=== PATIENT | female | born 1950 | race Caucasian/White ===

== ENCOUNTER 2018-08-10 06:52 | Day surgery (SDC) | payer MEDICARE, MEDICAID ==
[2018-08-07 09:10] LABS: BASOPHILS # (AUTO) 0.04 x10^3/uL (0-0.1); BASOPHILS % (AUTO) 0 % (0-1); EOSINOPHILS # (AUTO) 0.12 x10^3/uL (0-0.4); EOSINOPHILS % (AUTO) 1 % (1-7); LYMPHOCYTES # (AUTO) 1.76 x10^3/uL (1-3.4); LYMPHOCYTES % (AUTO) 14 % (22-44); MD NO; MEAN CORPUSCULAR HEMOGLOBIN 30.6 pg (27.0-34.8); MEAN CORPUSCULAR HGB CONC 33.2 g/dL (32.4-35.8); MEAN CORPUSCULAR VOLUME 92.1 fL (80-100); MEAN PLATELET VOLUME 6.8 fL (7.4-10.4); MONOCYTES # (AUTO) 1.07 x10^3/uL (0.2-0.8); MONOCYTES % (AUTO) 8 % (2-9); NEUTROPHILS # (AUTO) 9.79 x10^3/uL (1.8-6.8); NEUTROPHILS % (AUTO) 77 % (42-75); PLATELET COUNT 370 x10^3/uL (130-400); RED BLOOD COUNT 4.87 x10^6/uL (3.82-5.3); RED CELL DISTRIBUTION WIDTH 13.2 % (9.6-15.2)
[2018-08-07 09:23] LABS: ALANINE AMINOTRANSFERASE 24 U/L (12-78); ANION GAP 6 mmol/L (5-15); CALCIUM 8.9 mg/dL (8.5-10.1); CHLORIDE 105 mmol/L (98-107)
[2018-08-07 09:25] LABS: ALKALINE PHOSPHATASE 82 U/L (45-117); BILIRUBIN,TOTAL 0.9 mg/dL (0.2-1.0); CREATININE 0.79 mg/dL (0.55-1.02); TOTAL PROTEIN 7.6 g/dL (6.4-8.2)
[2018-08-07 09:35] LABS: MICROSCOPIC INDICATED
[2018-08-07 09:37] LABS: CULTURE INDICATED? NO
[~2018-08-10] VITALS: Ht 162.6 cm; Wt 72.1 kg
[~2018-08-10 06:52] MED LIST: GABA100C PO; LISI2.5T PO; METO25TA91 PO; TRAM50TA2 PO; VERA40TA PO; Will bring list DOS
[2018-08-10] MEDS ORDERED: BUPIVACAINE/PF 0.25% ONE ×2 (07:19→08:37)
[2018-08-10] MEDS ORDERED: EPINEPHRINE 1 MG/ML, 1ML ONE ×2 (07:19→08:38)
[2018-08-10] MEDS ORDERED: FLUORESCEIN SODIUM 500 MG/5 ML ONE ×2 (07:19→08:37)
[2018-08-10] MEDS ORDERED: NEOSPORIN OINT, 15GM ONE ×2 (07:19→08:37)
[2018-08-10 08:16] VITALS: BP 155/103
[2018-08-10] MEDS ORDERED: LACTATED RINGERS 1,000 ML IV SCH (08:16)
[2018-08-10] MEDS ORDERED: MONT10TA9 PO (08:22)
[2018-08-10] MEDS ORDERED: TRAM50TA2 PO (08:22)
[2018-08-10] MEDS ORDERED: ALBU18HF IH (08:22)
[2018-08-10] MEDS ORDERED: METO50TA82 PO (08:22)
[2018-08-10] MEDS ORDERED: LISI40TA PO (08:22)
[2018-08-10] MEDS ORDERED: GABA100C PO (08:22)
[2018-08-10] MEDS ORDERED: CITA10TA4 PO (08:22)
[2018-08-10] MEDS ORDERED: VERA40TA PO (08:22)
[2018-08-10 08:24] LABS: BASOPHILS # (AUTO) 0.05 x10^3/uL (0-0.1); BASOPHILS % (AUTO) 1 % (0-1); EOSINOPHILS # (AUTO) 0.26 x10^3/uL (0-0.4); EOSINOPHILS % (AUTO) 4 % (1-7); LYMPHOCYTES # (AUTO) 2.09 x10^3/uL (1-3.4); LYMPHOCYTES % (AUTO) 31 % (22-44); MD NO; MEAN CORPUSCULAR HEMOGLOBIN 31.3 pg (27.0-34.8); MEAN CORPUSCULAR VOLUME 92.2 fL (80-100); MEAN PLATELET VOLUME 7.1 fL (7.4-10.4); MONOCYTES # (AUTO) 0.59 x10^3/uL (0.2-0.8); MONOCYTES % (AUTO) 9 % (2-9); NEUTROPHILS # (AUTO) 3.75 x10^3/uL (1.8-6.8); NEUTROPHILS % (AUTO) 56 % (42-75); PLATELET COUNT 328 x10^3/uL (130-400); RED BLOOD COUNT 4.63 x10^6/uL (3.82-5.3); RED CELL DISTRIBUTION WIDTH 13.3 % (9.6-15.2)
[2018-08-10] MEDS ORDERED: APREPITANT 40 MG CAPSULE PO ONE (08:30)
[2018-08-10] MEDS ORDERED: OXYcodone IR 5MG TABLET PO ONE (08:30)
[2018-08-10] MEDS ORDERED: ACETAMINOPHEN 500 MG TABLET PO ONE (08:30)
[2018-08-10] MEDS ORDERED: GABAPENTIN 300 MG CAPSULE PO ONE (08:30)
[2018-08-10] MEDS ORDERED: ROCURONIUM 10MG/ML,5ML ONE ×2 (09:00→10:48)
[2018-08-10] MEDS ORDERED: PROPOFOL 10 MG/ML, 20ML ONE ×2 (09:00→10:24)
[2018-08-10] MEDS ORDERED: DEXAMETHASONE 4 MG/ML, 1ML ONE (09:01)
[2018-08-10] MEDS ORDERED: ONDANSETRON 2MG/ML, 2ML ONE (09:01)
[2018-08-10] MEDS ORDERED: FENTANYL PF 100 MCG/2ML ONE ×2 (09:43→12:56)
[2018-08-10] MEDS ORDERED: GLYCOPYRROLATE 0.4 MG/2 ML, 2ML ONE (10:24)
[2018-08-10] MEDS ORDERED: ATROPINE 0.4 MG/ML, 1ML ONE (10:24)
[2018-08-10] MEDS ORDERED: KETOROLAC 30 MG/1 ML IV PRN ×2 (10:30)
[2018-08-10] MEDS ORDERED: MORPHINE SULFATE 4 MG/ML, 1ML IVPush PRN (10:30)
[2018-08-10] MEDS ORDERED: OXYcodone 5 MG/5 ML ORAL.SOL UDC PO PRN (10:30)
[2018-08-10] MEDS ORDERED: KETOROLAC 30 MG/1 ML IM PRN (10:30)
[2018-08-10] MEDS ORDERED: ACETAMINOPHEN 325 MG TABLET PO PRN ×2 (10:30→13:00)
[2018-08-10] MEDS ORDERED: MEPERIDINE/PF 25MG/0.5ML IVPush PRN (10:30)
[2018-08-10] MEDS ORDERED: HYDROmorphone 2 MG/ML, 1ML IVPush PRN (10:30)
[2018-08-10] MEDS ORDERED: HYDROcodone/APAP 7.5-325MG/15ML UDC PO PRN (10:30)
[2018-08-10] MEDS ORDERED: SUGAMMADEX 200 MG/2 ML IVPush ONE (10:31)
[2018-08-10] MEDS ORDERED: CEFAZOLIN 1,000 MG ONE (12:37)
[2018-08-10] MEDS ORDERED: D5%-0.45% NACL 1,000 ML IV SCH (12:51)
[2018-08-10] MEDS ORDERED: OXYcodone 5 MG/5 ML ORAL.SOL UDC ONE (12:56)
[2018-08-10] MEDS ORDERED: ONDANSETRON 2MG/ML, 2ML IVPush PRN (13:00)
[2018-08-10] MEDS ORDERED: OXYcodone/APAP 5/325MG TABLET PO PRN (13:00)
[2018-08-10] MEDS: FENTANYL PF 100 MCG/2ML IV PRN ×2 (13:18→13:30)
[2018-08-10] MEDS ORDERED: METOPROLOL TARTRATE 50 MG TABLET PO ONE (14:30)
[2018-08-10] MEDS ORDERED: IBUPROFEN 600 MG TABLET PO SCH (16:00)
[2018-08-10] MEDS ORDERED: DOCUSATE 100 MG CAPSULE PO SCH (21:00)
== END 2018-08-10 18:25 | disposition home or self-care (01) ==
LOC: OUT 06:52
PROVIDERS: ATTEND Obstetrics & Gynecology
DX: D25.1 Intramural leiomyoma of uterus (principal); N83.291 Other ovarian cyst, right side; N84.0 Polyp of corpus uteri; N83.8 Other noninflammatory disorders of ovary, fallopian tube and broad ligament; N73.6 Female pelvic peritoneal adhesions (postinfective); I10 Essential (primary) hypertension; Z79.891 Long term (current) use of opiate analgesic; Z79.899 Other long term (current) drug therapy; Z78.0 Asymptomatic menopausal state; Z91.040 Latex allergy status; Z98.51 Tubal ligation status; Z98.890 Other specified postprocedural states
CPT/HCPCS: 36415; 58552; 58662; 80053; 81001; 85025; 88307; 93005; J0171; J0461; J0690; J1100; J2405; J2704; J3010; J3490; J7120; J8501

== ENCOUNTER → 2020-09-15 | Outpatient (CLI) | payer MEDICAID, MEDICARE ==
[~2020-09-15] MED LIST changes: +ALBU18HF IH; +CITA10TA4 PO; +LISI40TA9 PO; +METO50TA82 PO; +MONT10TA17 PO; +REGADENOSON 0.4 MG/5 ML SYRINGE ONE
== END | disposition home or self-care (01) ==
LOC: CFH 06:42
PROVIDERS: ATTEND Internal Medicine Cardiovascular Disease
DX: I08.1 Rheumatic disorders of both mitral and tricuspid valves (principal); I21.19 ST elevation (STEMI) myocardial infarction involving other coronary artery of inferior wall; I25.9 Chronic ischemic heart disease, unspecified; I11.9 Hypertensive heart disease without heart failure; R07.89 Other chest pain
CPT/HCPCS: 78452; 93017; 93306; A9502; J2785

== ENCOUNTER → 2020-09-17 | Outpatient (CLI) | payer MEDICARE ==
[~2020-09-17] MED LIST changes: -REGADENOSON 0.4 MG/5 ML SYRINGE ONE
== END | disposition home or self-care (01) ==
LOC: LAB 13:02
PROVIDERS: ATTEND Nurse Practitioner Family
DX: I10 Essential (primary) hypertension (principal); I71.9 Aortic aneurysm of unspecified site, without rupture; J45.998 Other asthma; R07.89 Other chest pain
CPT/HCPCS: 36415; 86140

== ENCOUNTER → 2020-09-18 | Outpatient (CLI) | payer MEDICARE ==
[~2020-09-18] MED LIST changes: +OMNIPAQUE 350 MG/ML, 100ML BOTTLE ONE
== END | disposition home or self-care (01) ==
LOC: CVU 13:48
PROVIDERS: ATTEND Nurse Practitioner Family
DX: I71.2 Thoracic aortic aneurysm, without rupture (principal); I70.1 Atherosclerosis of renal artery
CPT/HCPCS: 71275; 82565; 93975; Q9967

== ENCOUNTER 2020-10-08 10:47 | Observation (INO) | payer MEDICARE ==
[~2020-10-08] VITALS: Ht 162.6 cm; Wt 73.4 kg
[~2020-10-08 10:47] MED LIST changes: -OMNIPAQUE 350 MG/ML, 100ML BOTTLE ONE
[2020-10-08 11:17] VITALS: BP 144/112
[2020-10-08] MEDS ORDERED: ASCO500T8 PO (11:31)
[2020-10-08] MEDS ORDERED: CALC-451 PO (11:31)
[2020-10-08] MEDS ORDERED: DOXA1TAB2 PO (11:31)
[2020-10-08] MEDS ORDERED: LORA-59 PO (11:31)
[2020-10-08] MEDS ORDERED: HYDR25TA6 PO (11:31)
[2020-10-08 11:54] LABS: BASOPHILS % (AUTO) 1 % (0-1); EOSINOPHILS % (AUTO) 3 % (1-7); LYMPHOCYTES % (AUTO) 19 % (22-44); MEAN CORPUSCULAR HEMOGLOBIN 31.9 pg (27.0-34.8); MEAN CORPUSCULAR HGB CONC 34.5 g/dL (32.4-35.8); MEAN PLATELET VOLUME 6.8 fL (7.4-10.4); MONOCYTES % (AUTO) 9 % (2-9); NEUTROPHILS % (AUTO) 69 % (42-75); PLATELET COUNT 358 x10^3/uL (130-400); RED BLOOD COUNT 4.19 x10^6/uL (3.82-5.3); RED CELL DISTRIBUTION WIDTH 14.1 % (9.6-15.2)
[2020-10-08 12:02] LABS: ANION GAP 9 mmol/L (5-15); CALCIUM 9.8 mg/dL (8.5-10.1); CHLORIDE 100 mmol/L (98-107); CREATININE 0.76 mg/dL (0.55-1.02)
[2020-10-08 12:12] LABS: INTERNATIONAL NORMALIZED RATIO 1.51 (0.93-1.1)
[2020-10-08] MEDS ORDERED: VERAPAMIL 2.5 MG/ML, 2ML ONE (13:48)
[2020-10-08] MEDS ORDERED: BIVALIRUDIN 250 MG ONE (13:48)
[2020-10-08] MEDS ORDERED: TICAGRELOR 90 MG TABLET ONE (13:48)
[2020-10-08] MEDS ORDERED: MIDAZOLAM 1 MG/ML, 5ML ONE (13:48)
[2020-10-08] MEDS ORDERED: HEPARIN 1,000 UNITS/ML, 10ML ONE (13:48)
[2020-10-08] MEDS ORDERED: FENTANYL PF 100 MCG/2ML ONE (13:48)
[2020-10-08] MEDS ORDERED: LIDOCAINE 2%, 20ML ONE (13:49)
[2020-10-08] MEDS ORDERED: ALBUTEROL HFA 90 MCG/SPRAY INH PRN (15:30)
[2020-10-08] MEDS ORDERED: CITALOPRAM 10 MG TABLET PO PRN (15:30)
[2020-10-08] MEDS ORDERED: GABAPENTIN 100 MG CAPSULE PO PRN (15:30)
[2020-10-08] MEDS: SODIUM CHLORIDE 0.9% 1,000 ML IV SCH ×2 (15:30→23:30)
[2020-10-08 19:22] VITALS: BP 114/72
[2020-10-08 21:19] VITALS: BP 97/59
[2020-10-08] MEDS: METOPROLOL TARTRATE 50 MG TAB PO SCH (21:21)
[2020-10-08] MEDS: LISINOPRIL 40 MG TABLET PO SCH (21:21)
[2020-10-09 00:48] VITALS: BP 97/59
[2020-10-09 06:25] VITALS: BP 129/89
[2020-10-09] MEDS: SODIUM CHLORIDE 0.9% 1,000 ML IV SCH (07:30)
[2020-10-09 08:23] VITALS: BP 149/103
[2020-10-09] MEDS ORDERED: MONTELUKAST 10 MG TABLET PO SCH (09:00)
[2020-10-09] MEDS ORDERED: HYDROCHLOROTHIAZIDE 25 MG TABLET PO SCH (09:00)
[2020-10-09] MEDS ORDERED: ASCORBIC ACID 500 MG TABLET PO SCH (09:00)
[2020-10-09] MEDS ORDERED: LORATADINE 10 MG TABLET PO SCH (09:00)
[2020-10-09] MEDS ORDERED: VERAPAMIL ER 120MG TABLET.ER PO SCH (09:00)
[2020-10-09] MEDS ORDERED: DOXAZOSIN 1MG TABLET PO SCH (09:00)
[2020-10-09] MEDS: LISINOPRIL 40 MG TABLET PO SCH (09:00)
[2020-10-09 10:23] VITALS: BP 110/78
[2020-10-09] MEDS: METOPROLOL TARTRATE 50 MG TAB PO SCH (10:26)
[2020-10-29] MEDS ORDERED: MULT-449 PO (13:45)
[2020-10-29] MEDS ORDERED: LOPE-114 PO (13:45)
== END 2020-10-09 11:05 | disposition home or self-care (01) ==
LOC: CACL 10:47 → 5SO 15:54 → CACL 18:37 → 5SO 18:38 → DCLOUNGE 10-09 10:54
PROVIDERS: ADMIT Internal Medicine Cardiovascular Disease; ATTEND Internal Medicine Cardiovascular Disease
DX: I71.2 Thoracic aortic aneurysm, without rupture (principal); I10 Essential (primary) hypertension; J45.998 Other asthma; Z79.899 Other long term (current) drug therapy; Z91.040 Latex allergy status
CPT/HCPCS: 36415; 80048; 85025; 85610; 85730; 93458; 99156; C1769; C1894; G0378; J1644; J2250; J3010; J3490; Q9967; J0583

== ENCOUNTER 2020-10-30 04:09 | Inpatient (IN) | payer MEDICARE ==
[2020-10-29 14:24] LABS: BASOPHILS % (AUTO) 1 % (0-1); EOSINOPHILS % (AUTO) 4 % (1-7); LYMPHOCYTES % (AUTO) 27 % (22-44); MEAN CORPUSCULAR HEMOGLOBIN 31.6 pg (27.0-34.8); MEAN CORPUSCULAR HGB CONC 33.6 g/dL (32.4-35.8); MEAN PLATELET VOLUME 6.6 fL (7.4-10.4); MONOCYTES % (AUTO) 8 % (2-9); NEUTROPHILS % (AUTO) 59 % (42-75); PLATELET COUNT 311 x10^3/uL (130-400); RED BLOOD COUNT 4.08 x10^6/uL (3.82-5.3); RED CELL DISTRIBUTION WIDTH 13.7 % (9.6-15.2)
[2020-10-29 14:32] LABS: ALANINE AMINOTRANSFERASE 23 U/L (12-78); ALBUMIN 3.8 g/dL (3.4-5.0); ANION GAP 6 mmol/L (5-15); CALCIUM 9.2 mg/dL (8.5-10.1); CHLORIDE 99 mmol/L (98-107); CREATININE 0.72 mg/dL (0.55-1.02)
[2020-10-29 14:33] LABS: INTERNATIONAL NORMALIZED RATIO 1.1 (0.93-1.1); PROTHROMBIN TIME 11.8 Seconds (9.6-11.5)
[2020-10-29 14:35] LABS: ALKALINE PHOSPHATASE 50 U/L (45-117); BILIRUBIN,TOTAL 0.7 mg/dL (0.2-1.0); TOTAL PROTEIN 7.3 g/dL (6.4-8.2)
[2020-10-29 14:48] LABS: MICROSCOPIC INDICATED
[~2020-10-30] VITALS: Ht 162.6 cm; Wt 74.2 kg
[~2020-10-30 04:09] MED LIST changes: +ASCO500T8 PO; +CALC-451 PO; +DOXA1TAB2 PO; +HYDR25TA6 PO; +LOPE-114 PO; +LORA-59 PO; +MULT-449 PO
[2020-10-30 04:28] VITALS: BP_SYST 131; BP_SYST 148; BP_DIAS 82; BP_DIAS 91
[2020-10-30] MEDS ORDERED: CHLORHEXIDINE 15 ML UDC MM SCH (04:30)
[2020-10-30] MEDS ORDERED: INSULIN LISPRO 100 UNITS/ML, PEN SQ-INSULIN SCH (04:30)
[2020-10-30] MEDS: MUPIROCIN OINT 2%, 15GM TP SCH ×2 (05:24→18:46)
[2020-10-30] MEDS ORDERED: MIDAZOLAM 10MG/2 ML ONE (07:03)
[2020-10-30] MEDS ORDERED: FENTANYL PF 250 MCG/5ML ONE ×4 (07:04)
[2020-10-30] MEDS ORDERED: EPINEPHRINE 5 MG in SODIUM CHLORIDE 0.9% 245 ML IV PRN ×2 (07:30→10:00)
[2020-10-30] MEDS ORDERED: POTASSIUM CHLORIDE 80 MEQ, SODIUM BICARBONATE 8.4% 10 MEQ, MAGNESIUM SULFATE 0.5 GM, LI... IV PRN (07:30)
[2020-10-30] MEDS ORDERED: CEFUROXIME 1.5 GM in SODIUM CHLORIDE 0.9% 50 ML IVPB PRN (07:30)
[2020-10-30] MEDS ORDERED: DEXMEDETOMIDINE 200 MCG in SODIUM CHLORIDE 0.9% 48 ML IV PRN (07:30)
[2020-10-30] MEDS ORDERED: VANCOMYCIN 1,100 MG in SODIUM CHLORIDE 0.9% 250 ML IV PRN (07:30)
[2020-10-30] MEDS ORDERED: PHENYLEPHRINE 50 MG in SODIUM CHLORIDE 0.9% 245 ML IV PRN ×2 (07:30→10:00)
[2020-10-30] MEDS ORDERED: REGULAR INSULIN 100 UNITS in SODIUM CHLORIDE 0.9% 99 ML IV PRN ×2 (07:30→10:00)
[2020-10-30] MEDS ORDERED: ALBUMIN HUMAN 5% 500 ML IV PRN ×2 (07:30→10:00)
[2020-10-30] MEDS ORDERED: MANNITOL PMX 20% 500 ML IVPB PRN (07:30)
[2020-10-30] MEDS: SODIUM CHLORIDE FLUSH 10ML SYR IVF SCH ×3 (09:00→19:51)
[2020-10-30] MEDS ORDERED: PROPOFOL 10 MG/ML, 20ML ONE ×2 (09:53→10:26)
[2020-10-30] MEDS ORDERED: INSULIN REGULAR 100 UNITS/ML, 3ML VIAL IVPush PRN (10:00)
[2020-10-30] MEDS: ACETAMINOPHEN 500 MG TABLET PO SCH ×3 (10:00→22:31)
[2020-10-30] MEDS ORDERED: GLUCAGON 1 MG IM PRN (10:00)
[2020-10-30] MEDS ORDERED: DEXMEDETOMIDINE 400 MCG in SODIUM CHLORIDE 0.9% 96 ML IV PRN (10:00)
[2020-10-30] MEDS ORDERED: PROCHLORPERAZINE 5 MG/ML, 2ML IVPush PRN (10:00)
[2020-10-30] MEDS: KSCALE TO 4.5 IV SCH ×3 (10:00→22:00)
[2020-10-30] MEDS ORDERED: SODIUM CHLORIDE 0.9% 1,000 ML IV SCH (10:00)
[2020-10-30] MEDS ORDERED: LACTATED RINGERS 500 ML IV PRN (10:00)
[2020-10-30] MEDS ORDERED: OXYcodone IR 5MG TABLET PO PRN (10:00)
[2020-10-30] MEDS ORDERED: FENTANYL PF 100 MCG/2ML IV PRN (10:00)
[2020-10-30] MEDS: INSULIN LISPRO 100 UNITS/ML, PEN SQ-INSULIN SCH ×5 (10:00→23:51)
[2020-10-30] MEDS ORDERED: VASOPRESSIN 20 UNIT in SODIUM CHLORIDE 0.9% 99 ML IV PRN (10:00)
[2020-10-30] MEDS: ASPIRIN 81 MG TABLET EC PO SCH (10:00)
[2020-10-30] MEDS ORDERED: DOBUTAMINE 250 MG in SODIUM CHLORIDE 0.9% 230 ML IV PRN (10:00)
[2020-10-30] MEDS ORDERED: DEXTROSE 50%, 50ML SYRINGE IVPush PRN (10:00)
[2020-10-30] MEDS ORDERED: SODIUM BICARB 8.4%, 50ML SYRINGE IV PRN (10:00)
[2020-10-30] MEDS ORDERED: MIDAZOLAM 1 MG/ML, 2ML IV PRN (10:00)
[2020-10-30] MEDS ORDERED: PROMETHAZINE 25 MG SUPP PR PRN (10:00)
[2020-10-30] MEDS ORDERED: NITROGLYCERIN/D5W PMX 250 ML IV PRN (10:00)
[2020-10-30] MEDS ORDERED: DEXTROSE 4 GM TAB.CHEW PO PRN (10:00)
[2020-10-30] MEDS ORDERED: morphine SULFATE 10 MG/ML, 1ML IVPush PRN (10:00)
[2020-10-30] MEDS ORDERED: ONDANSETRON 2MG/ML, 2ML IVPush PRN (10:00)
[2020-10-30] MEDS ORDERED: ROCURONIUM 10MG/ML,5ML ONE ×3 (10:26)
[2020-10-30] MEDS ORDERED: AMINOCAPROIC ACID 250 MG/ML, 20ML ONE ×2 (10:26)
[2020-10-30] MEDS ORDERED: PROTAMINE SULFATE 10 MG/ML, 25ML ONE ×2 (10:26→11:51)
[2020-10-30] MEDS ORDERED: CALCIUM CHLORIDE 13.6 MEQ in SODIUM CHLORIDE 0.9% 100 ML IVPB PRN (11:00)
[2020-10-30 12:42] LABS: GLUCOSE BY BLOOD GAS ANALYZER 134 mg/dL (70-110); HEMOGLOBIN BY BLOOD GAS ANALYZ 10.4 g/dL (14.0-18.0); POTASSIUM BY BLOOD GAS ANALYZR 3.6 mmol/L (3.6-5.5)
[2020-10-30] MEDS ORDERED: HEPARIN 1,000 UNITS/ML, 30ML ONE (12:45)
[2020-10-30] MEDS ORDERED: ALBUMIN HUMAN 25% 50 ML ONE (12:45)
[2020-10-30] MEDS ORDERED: CALCIUM CHLORIDE 10%, 10ML SYR ONE (12:45)
[2020-10-30] MEDS ORDERED: POTASSIUM CHLORIDE 40MEQ/20ML IV ONE (12:45)
[2020-10-30] MEDS ORDERED: SODIUM BICARB 8.4%, 50ML SYRINGE ONE (12:45)
[2020-10-30] MEDS ORDERED: MAGNESIUM SULFATE PMX 2GM/50ML 50 ML ONE (12:46)
[2020-10-30 12:56] LABS: INTERNATIONAL NORMALIZED RATIO 1.27 (0.93-1.1); PROTHROMBIN TIME 13.5 Seconds (9.6-11.5)
[2020-10-30] MEDS: MAGNESIUM SULFATE 1 GM in SODIUM CHLORIDE 0.9% 100 ML IVPB SCH (13:03)
[2020-10-30] MEDS ORDERED: POTASSIUM CHLORIDE PMX 100 ML IV ONE ×2 (13:30→18:30)
[2020-10-30] MEDS: SENNA/DOCUSATE TABLET PO SCH (19:54)
[2020-10-30] MEDS: DOCUSATE 100 MG CAPSULE PO SCH (19:54)
[2020-10-30] MEDS: OXYcodone IR 5MG TABLET PO PRN ×2 (19:54→23:49)
[2020-10-30] MEDS ORDERED: DIPHENHYDRAMINE 25 MG CAPSULE PO PRN (21:00)
[2020-10-30] MEDS: VANCOMYCIN 1,100 MG in SODIUM CHLORIDE 0.9% 250 ML IVPB SCH (21:31)
[2020-10-30] MEDS: CEFUROXIME 1.5 GM in SODIUM CHLORIDE 0.9% 50 ML IVPB SCH (21:31)
[2020-10-31] MEDS: OXYcodone IR 5MG TABLET PO PRN ×2 (02:48→08:59)
[2020-10-31] MEDS: INSULIN LISPRO 100 UNITS/ML, PEN SQ-INSULIN SCH ×5 (03:49→20:22)
[2020-10-31] MEDS: MUPIROCIN OINT 2%, 15GM NAS SCH ×2 (03:50→19:23)
[2020-10-31] MEDS: KSCALE TO 4.5 IV SCH (04:00)
[2020-10-31 04:13] LABS: BASOPHILS % (AUTO) 0 % (0-1); EOSINOPHILS % (AUTO) 0 % (1-7); LYMPHOCYTES % (AUTO) 3 % (22-44); MEAN CORPUSCULAR HEMOGLOBIN 32.4 pg (27.0-34.8); MEAN CORPUSCULAR HGB CONC 34.8 g/dL (32.4-35.8); MEAN PLATELET VOLUME 6.6 fL (7.4-10.4); MONOCYTES % (AUTO) 7 % (2-9); NEUTROPHILS % (AUTO) 90 % (42-75); PLATELET COUNT 193 x10^3/uL (130-400); RED BLOOD COUNT 3.27 x10^6/uL (3.82-5.3); RED CELL DISTRIBUTION WIDTH 13.7 % (9.6-15.2)
[2020-10-31 04:18] LABS: ANION GAP 9 mmol/L (5-15); CALCIUM 7.8 mg/dL (8.5-10.1); CHLORIDE 102 mmol/L (98-107); CREATININE 0.68 mg/dL (0.55-1.02)
[2020-10-31] MEDS: ACETAMINOPHEN 500 MG TABLET PO SCH ×4 (04:23→21:43)
[2020-10-31] MEDS: MUPIROCIN OINT 2%, 15GM TP SCH ×2 (04:24→20:22)
[2020-10-31] MEDS ORDERED: POTASSIUM CHLORIDE PMX 100 ML IV ONE (05:00)
[2020-10-31] MEDS: OMEPRAZOLE 20 MG CAPSULE.DR PO SCH (05:35)
[2020-10-31] MEDS: ASPIRIN 81 MG TABLET EC PO SCH (08:55)
[2020-10-31] MEDS: CHLORHEXIDINE 15 ML UDC MM SCH ×2 (08:55→20:16)
[2020-10-31] MEDS: POLYETHYLENE GLYCOL 17 GM PACKET PO SCH (08:55)
[2020-10-31] MEDS: DOCUSATE 100 MG CAPSULE PO SCH ×2 (08:55→20:21)
[2020-10-31] MEDS: SENNA/DOCUSATE TABLET PO SCH ×2 (08:55→20:21)
[2020-10-31] MEDS: CEFUROXIME 1.5 GM in SODIUM CHLORIDE 0.9% 50 ML IVPB SCH (08:59)
[2020-10-31] MEDS: SODIUM CHLORIDE FLUSH 10ML SYR IVF SCH ×4 (09:00→20:23)
[2020-10-31] MEDS: VANCOMYCIN 1,100 MG in SODIUM CHLORIDE 0.9% 250 ML IVPB SCH (10:06)
[2020-10-31] MEDS: KETOROLAC 30 MG/1 ML IVPush SCH ×3 (10:06→21:43)
[2020-10-31] MEDS: MAGNESIUM SULFATE 1 GM in SODIUM CHLORIDE 0.9% 100 ML IVPB SCH (12:07)
[2020-11-01] VITALS (12 sets, daily range): BP systolic 125–159; BP diastolic 61–90
[2020-11-01] MEDS: INSULIN LISPRO 100 UNITS/ML, PEN SQ-INSULIN SCH ×5 (00:32→20:56)
[2020-11-01] MEDS: KETOROLAC 30 MG/1 ML IVPush SCH ×4 (03:53→20:56)
[2020-11-01] MEDS: ACETAMINOPHEN 500 MG TABLET PO SCH ×4 (03:53→20:55)
[2020-11-01] MEDS: OXYcodone IR 5MG TABLET PO PRN (04:17)
[2020-11-01] MEDS: MUPIROCIN OINT 2%, 15GM NAS SCH ×2 (05:10→17:51)
[2020-11-01 05:18] LABS: BASOPHILS % (AUTO) 0 % (0-1); EOSINOPHILS % (AUTO) 1 % (1-7); LYMPHOCYTES % (AUTO) 4 % (22-44); MEAN CORPUSCULAR HEMOGLOBIN 32.5 pg (27.0-34.8); MEAN CORPUSCULAR HGB CONC 34.5 g/dL (32.4-35.8); MEAN PLATELET VOLUME 6.9 fL (7.4-10.4); MONOCYTES % (AUTO) 8 % (2-9); NEUTROPHILS % (AUTO) 86 % (42-75); PLATELET COUNT 197 x10^3/uL (130-400); RED BLOOD COUNT 3.08 x10^6/uL (3.82-5.3); RED CELL DISTRIBUTION WIDTH 14.1 % (9.6-15.2)
[2020-11-01 05:24] LABS: ANION GAP 5 mmol/L (5-15); CHLORIDE 105 mmol/L (98-107); CREATININE 0.52 mg/dL (0.55-1.02)
[2020-11-01] MEDS: MUPIROCIN OINT 2%, 15GM TP SCH ×2 (06:20→17:51)
[2020-11-01] MEDS: SODIUM CHLORIDE FLUSH 10ML SYR IVF SCH ×4 (09:54→20:57)
[2020-11-01] MEDS ORDERED: CITALOPRAM 20 MG TABLET PO PRN (10:00)
[2020-11-01] MEDS ORDERED: BISACODYL 10 MG SUPP PR PRN (10:00)
[2020-11-01] MEDS ORDERED: LISINOPRIL 10 MG TABLET PO SCH (10:00)
[2020-11-01] MEDS: GABAPENTIN 100 MG CAPSULE PO PRN (10:12)
[2020-11-01] MEDS: OMEPRAZOLE 20 MG CAPSULE.DR PO SCH (10:12)
[2020-11-01] MEDS: SENNA/DOCUSATE TABLET PO SCH ×2 (10:12→20:56)
[2020-11-01] MEDS: METOPROLOL TARTRATE 25 MG TAB PO SCH ×2 (10:12→17:51)
[2020-11-01] MEDS: ASPIRIN 81 MG TABLET EC PO SCH (10:12)
[2020-11-01] MEDS: CHLORHEXIDINE 15 ML UDC MM SCH ×2 (10:13→20:55)
[2020-11-01] MEDS: POLYETHYLENE GLYCOL 17 GM PACKET PO SCH (10:13)
[2020-11-01] MEDS: DOCUSATE 100 MG CAPSULE PO SCH ×2 (10:13→20:56)
[2020-11-01] MEDS: MAGNESIUM SULFATE 1 GM in SODIUM CHLORIDE 0.9% 100 ML IVPB SCH (11:50)
[2020-11-01] MEDS: POTASSIUM CHLORIDE 20 MEQ TAB.ER.PRT PO SCH (11:53)
[2020-11-01] MEDS: FUROSEMIDE 10 MG/ML ORAL SOL PO SCH (11:54)
--- NOTE | 2020-11-01 19:03 | NUR ---
VILMA VELIZ - Fall Risk Medications present DIPHENHYDRAMINE, FUROSEMIDE, GABAPENTIN, LISINOPRIL and METOPROLOL and NOT receiving anticoagulants. Signed: 11/01/20 at 1906 by Clay TURNER
[2020-11-02 01:30] VITALS: BP 150/80
[2020-11-02] MEDS: KETOROLAC 30 MG/1 ML IVPush SCH ×4 (02:10→21:30)
[2020-11-02] MEDS: ACETAMINOPHEN 500 MG TABLET PO SCH ×4 (04:22→21:41)
[2020-11-02] MEDS: MUPIROCIN OINT 2%, 15GM NAS SCH ×2 (05:48→18:31)
[2020-11-02] MEDS: METOPROLOL TARTRATE 25 MG TAB PO SCH ×2 (05:48→18:31)
[2020-11-02 05:53] LABS: BASOPHILS % (AUTO) 0 % (0-1); EOSINOPHILS % (AUTO) 2 % (1-7); LYMPHOCYTES % (AUTO) 6 % (22-44); MEAN CORPUSCULAR HEMOGLOBIN 32.3 pg (27.0-34.8); MEAN CORPUSCULAR HGB CONC 34.6 g/dL (32.4-35.8); MEAN PLATELET VOLUME 7.1 fL (7.4-10.4); MONOCYTES % (AUTO) 8 % (2-9); NEUTROPHILS % (AUTO) 85 % (42-75); PLATELET COUNT 208 x10^3/uL (130-400); RED CELL DISTRIBUTION WIDTH 13.8 % (9.6-15.2)
[2020-11-02] MEDS: MUPIROCIN OINT 2%, 15GM TP SCH ×2 (06:00→18:00)
[2020-11-02 06:03] LABS: ANION GAP 7 mmol/L (5-15); CALCIUM 7.8 mg/dL (8.5-10.1); CHLORIDE 102 mmol/L (98-107); CREATININE 0.38 mg/dL (0.55-1.02)
[2020-11-02] MEDS: INSULIN LISPRO 100 UNITS/ML, PEN SQ-INSULIN SCH ×4 (07:00→19:42)
[2020-11-02 07:33] VITALS: BP 166/83
[2020-11-02] MEDS: DOCUSATE 100 MG CAPSULE PO SCH ×3 (09:00→21:00)
[2020-11-02] MEDS ORDERED: LISINOPRIL 20 MG TABLET PO SCH (09:00)
[2020-11-02] MEDS: FUROSEMIDE 10 MG/ML ORAL SOL PO SCH (09:00)
[2020-11-02] MEDS: SENNA/DOCUSATE TABLET PO SCH ×3 (09:00→21:00)
[2020-11-02] MEDS: ASPIRIN 81 MG TABLET EC PO SCH (09:17)
[2020-11-02] MEDS: OMEPRAZOLE 20 MG CAPSULE.DR PO SCH (09:17)
[2020-11-02] MEDS: POTASSIUM CHLORIDE 20 MEQ TAB.ER.PRT PO SCH (09:17)
[2020-11-02] MEDS: POLYETHYLENE GLYCOL 17 GM PACKET PO SCH (09:18)
[2020-11-02] MEDS: SODIUM CHLORIDE FLUSH 10ML SYR IVF SCH ×2 (09:28→21:00)
[2020-11-02 12:43] VITALS: BP 142/75
[2020-11-02 19:33] VITALS: BP 154/82
[2020-11-02 22:40] VITALS: BP 185/102
[2020-11-02] MEDS ORDERED: hydrALAzine 20 MG/ML, 1ML IV PRN (23:00)
[2020-11-03] MEDS: KETOROLAC 30 MG/1 ML IVPush SCH ×2 (03:27→09:32)
[2020-11-03] MEDS: ACETAMINOPHEN 500 MG TABLET PO SCH ×2 (04:00→09:32)
[2020-11-03 05:23] LABS: ANION GAP 7 mmol/L (5-15); BASOPHILS % (AUTO) 0 % (0-1); CALCIUM 8.2 mg/dL (8.5-10.1); CHLORIDE 101 mmol/L (98-107); CREATININE 0.42 mg/dL (0.55-1.02); EOSINOPHILS % (AUTO) 2 % (1-7); LYMPHOCYTES % (AUTO) 7 % (22-44); MEAN CORPUSCULAR HGB CONC 34.3 g/dL (32.4-35.8); MEAN PLATELET VOLUME 7.1 fL (7.4-10.4); MONOCYTES % (AUTO) 10 % (2-9); NEUTROPHILS % (AUTO) 81 % (42-75); PLATELET COUNT 293 x10^3/uL (130-400); RED BLOOD COUNT 3.29 x10^6/uL (3.82-5.3); RED CELL DISTRIBUTION WIDTH 13.7 % (9.6-15.2)
[2020-11-03] MEDS: METOPROLOL TARTRATE 25 MG TAB PO SCH (05:43)
[2020-11-03] MEDS: MUPIROCIN OINT 2%, 15GM NAS SCH (05:44)
[2020-11-03 06:48] VITALS: BP 159/84
[2020-11-03] MEDS ORDERED: POTASSIUM CHLORIDE 20 MEQ TAB.ER.PRT PO ONE (08:00)
[2020-11-03] MEDS: MUPIROCIN OINT 2%, 15GM TP SCH (08:19)
[2020-11-03] MEDS: SODIUM CHLORIDE FLUSH 10ML SYR IVF SCH (09:00)
[2020-11-03] MEDS ORDERED: HYDROCHLOROTHIAZIDE 25 MG TABLET PO SCH (09:00)
[2020-11-03] MEDS ORDERED: LISINOPRIL 40 MG TABLET PO SCH (09:00)
[2020-11-03] MEDS ORDERED: FUROSEMIDE 20 MG TABLET ONE (09:25)
[2020-11-03] MEDS: DOCUSATE 100 MG CAPSULE PO SCH (09:27)
[2020-11-03] MEDS: SENNA/DOCUSATE TABLET PO SCH (09:28)
[2020-11-03] MEDS: GABAPENTIN 100 MG CAPSULE PO PRN (09:29)
[2020-11-03] MEDS: ASPIRIN 81 MG TABLET EC PO SCH (09:29)
[2020-11-03] MEDS: POTASSIUM CHLORIDE 20 MEQ TAB.ER.PRT PO SCH (09:29)
[2020-11-03] MEDS: OMEPRAZOLE 20 MG CAPSULE.DR PO SCH (09:29)
[2020-11-03] MEDS: POLYETHYLENE GLYCOL 17 GM PACKET PO SCH (09:31)
[2020-11-03] MEDS: FUROSEMIDE 10 MG/ML ORAL SOL PO SCH (09:32)
[2020-11-03] MEDS ORDERED: FURO-93 PO (09:46)
[2020-11-03] MEDS ORDERED: POTA20TA6 PO (09:46)
[2020-11-03] MEDS ORDERED: ASPI81TA45 PO (09:46)
[2020-11-03] MEDS ORDERED: ACET-1600 PO (09:46)
== END 2020-11-03 13:17 | disposition home or self-care (01) | DRG 221 ==
LOC: 5SO 04:09 → CSU 07:26 → 5SO 10-31 17:42
PROVIDERS: ADMIT Thoracic Surgery (Cardiothoracic Vascular Surgery); ATTEND Thoracic Surgery (Cardiothoracic Vascular Surgery)
PROC: 04R00KZ Replacement of Abdominal Aorta with Nonautologous Tissue Substitute, Open Approach (ICD-10-PCS; 2020-10-30)
PROC: B246ZZ4 Ultrasonography of Right and Left Heart, Transesophageal (ICD-10-PCS; 2020-10-30)
PROC: 02R Heart and Great Vessels, Replacement (ICD-10-PCS; principal; 2020-10-30 08:00)
DX: I71.2 Thoracic aortic aneurysm, without rupture (principal); I10 Essential (primary) hypertension; Z20.822 Contact with and (suspected) exposure to COVID-19; F41.9 Anxiety disorder, unspecified; I49.3 Ventricular premature depolarization; J45.909 Unspecified asthma, uncomplicated; Z86.79 Personal history of other diseases of the circulatory system; Z79.899 Other long term (current) drug therapy; Z79.82 Long term (current) use of aspirin
CPT/HCPCS: 36415; 36600; 71045; 71046; 80048; 80053; 81001; 82330; 82800; 82803; 82810; 82947; 82962; 83036; 83735; 84132; 84295; 85014; 85018; 85025; 85049; 85347; 85610; 85730; 86850; 86900; 86923; 87081; 88304; 93005; 93312; 93321; 93325; 93880; 94002; G0378; J0171; J0697; J1644; J1815; J1885; J2250; J2704; J2720; J3010; J3370; J3475; J3480; P9045; P9047; U0005; C1760; C1762; C1768; C1781; J0360; J2370; J7050; Q0163; U0003